=== PATIENT | female | born 1960 | race Caucasian/White ===

== ENCOUNTER 2017-03-12 05:57 | Emergency (ER) | payer OTHER ==
[~2017-03-12] VITALS: Ht 157.5 cm; Wt 78.9 kg
[~2017-03-12 05:57] MED LIST: AMO500 PO; CIPR-173; CIPR500T4 PO; DIPH25CA6 PO; HYDR-13; IBUP-1542 PO; LEVO50TA74 PO; MECL-77 PO; METR500T14; OMEP20CA9 PO; POLY10DR19 BOTH EYES; PRED20TA PO; SYNTHROID; TRAM50TA2 PO; synthroid
[2017-03-12 06:40] VITALS: Ht 157.5 cm; Wt 78.9 kg
--- NOTE | 2017-03-12 07:07 | ERD ---
ER Documentation Chief Complaint Date/Time DATE: 03/12/17 TIME: 07:04 Chief Complaint back pain after bending HPI This is a 57-year-old female who presents to the emergency room for evaluation of lower back pain. 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 She states that when she picks something up and started been back up she felt pain in her lower back. She states it is worse with standing straight, denies any radiation and denies any trauma to the area. The patient is also denying any fevers, urinary frequency, abdominal pain or urinary incontinence. ROS All systems reviewed and are negative except as per history of present illness. Medications Home Meds Active Scripts Polymyxin B Sulfate-TMP* (Polymyxin B-TMP Eye Drops*) 10 Ml Drops, 1 DROP BOTH EYES QID for 7 Days, EA Prov:SERGIO SELF MD 05/04/16 Amoxicillin* (Amoxicillin*) 500 Mg Cap, 500 MG PO TID for 10 Days, CAP Prov:SERGIO SELF MD 05/04/16 Ibuprofen* (Motrin*) 600 Mg Tab, 600 MG PO Q6, #15 TAB Prov:SERGIO SELF MD 05/04/16 Diphenhydramine Hcl* (Diphenhydramine Hcl*) 25 Mg Capsule, 25 MG PO Q6 Y for ITCHING, #14 CAP Prov:VINICIO IRIZARRY 02/26/16 Prednisone* (Prednisone*) 20 Mg Tab, 60 MG PO DAILY for 5 Days, TAB Prov:VINICIO IRIZARRY 02/26/16 Reported Medications Levothyroxine Sodium* (Levothyroxine Sodium*) 50 Mcg Tablet, 50 MCG PO AC BREAKFAST, TAB 04/08/15 Meclizine Hcl* (Meclizine Hcl*) 25 Mg Tablet, 25 MG PO TID Y for NAUSEA, TAB 04/06/15 Levothyroxine Sodium* (Levothyroxine Sodium*) 50 Mcg Tablet, 50 MCG PO DAILY, TAB 11/02/14 Allergies Allergies: Coded Allergies: No Known Drug Allergy (Verified Allergy, Mild, 03/18/15) PMhx/Soc History of Surgery: Yes (BHAKTI ALEXIS 2006 ABDOMINAL SX,BREAST IMPLANT 8 YEARS AGO,CHOLECYSTECTOMY) Anesthesia Reaction: No Hx Neurological Disorder: No Hx Respiratory Disorders: No Hx Cardiac Disorders: No Hx Psychiatric Problems: No Hx Miscellaneous Medical Probl: Yes Hx Alcohol Use: No Hx Substance Use: No Hx Tobacco Use: No Physical Exam Vitals Vital Signs Date Time Temp Pulse Resp B/P Pulse Ox O2 Delivery O2 Flow Rate FiO2 03/12/17 06:40 97.8 84 18 114/67 99 Physical Exam INITIAL VITAL SIGNS: Reviewed by me GENERAL: The patient is well developed and appropriate for usual state of health in no apparent distress HEENT: Pupils equal, round, and reactive to light. EOMI. There is no scleral icterus. NECK: C-spine is soft and supple, there is no meningismus. There is no cervical lymphadenopathy. LUNGS: Clear to auscultation bilaterally. There are no rales, wheezes or rhonchi. HEART: Regular rate and rhythm, no murmurs, clicks, rubs or gallops. ABDOMEN: Soft, non-tender, non-distended. There are bowel sounds in all four quadrants. No rebound or guarding. EXTREMITIES: There is no peripheral cyanosis or edema. No focal swelling or erythema. NEUROLOGICAL: The patient moves all four extremities with 5/5 strength. Cranial nerves II - XII are intact. Normal gait. Alert and oriented SKIN: There is no apparent rash or petechiae. Musculoskeletal: Limitation in range of motion of extension in the lumbar spine secondary to pain HEME/LYMPHATIC: There is no evidence of excessive bruising or lymphedema. PSYCHIATRIC: The patient does not appear anxious or depressed. Procedures/MDM This 57-year-old female presents to the emergency room for evaluation of nontraumatic lower back pain. The patient did have lower back pain after trying to pick something up. This patient has limitation secondary to pain with extension of her back and given her mechanism the patient is likely suffering from acute lumbar strain. The patient was given Motrin value in the emergency room and will be discharged home with a prescription for Motrin, and Valium. She was advised not to drink any alcohol value and advised him to the operating heavy machinery and including a motor vehicle. She states that she is going to go home and rest for the next couple of days. She is here with her daughter who takes care of her and her daughter feels comfortable taking the patient home at this time. I advised him to follow-up with her primary care physician in the next week for reevaluation and they verbalized understanding. Patient presents today with atraumatic back pain. Although infection, malignancy, GI, , and vascular causes have been considered in this patient, the patient's clinical presentation is most consistent with a musculoskeletal cause. There is neither evidence of any acute neurologic damage, nor of loss of function and thus, advanced imaging studies have been deferred. Patient will be treated conservatively with appropriate pain control precautionary discharge instructions provided. Departure Diagnosis: Primary Impression: Lumbar spine strain Additional Impression: Back pain Condition: Stable JOSE REYES DO Mar 12, 2017 07:07
[2017-03-12] MEDS ORDERED: DIAZ-90 PO (07:08)
[2017-03-12] MEDS ORDERED: IBUP800T25 PO (07:08)
[2017-03-12] MEDS ORDERED: DIAZEPAM 5 MG TAB PO ONE (07:30)
[2017-03-12] MEDS ORDERED: IBUPROFEN 800 MG TAB PO ONE (07:30)
== END 2017-03-12 07:45 | disposition home or self-care (01) ==
LOC: FTE 05:57
DX: S39.012A Strain of muscle, fascia and tendon of lower back, initial encounter (principal); X50.9XXA Other and unspecified overexertion or strenuous movements or postures, initial encounter; Y92.9 Unspecified place or not applicable
CPT/HCPCS: Z7502; Z7610; 99283

== ENCOUNTER 2017-09-20 02:51 | Inpatient (IN) | END 2017-09-23 13:21 | disposition home or self-care (01) | DRG 390 ==

== ENCOUNTER 2018-01-05 17:50 | Emergency (ER) | END 2018-01-05 19:00 | disposition home or self-care (01) ==

== ENCOUNTER 2018-09-20 18:13 | Inpatient (IN) | payer OTHER ==
[~2018-09-20] VITALS: Ht 160 cm; Wt 70.5 kg
[~2018-09-20 18:13] MED LIST changes: -AMO500 PO; +AMOX500C2 PO; +BACL10TA PO; -CIPR-173; -CIPR500T4 PO; -DIPH25CA6 PO; +FLUT9.9S NASAL; -HYDR-13; +LEVO50TA7 PO; -LEVO50TA74 PO; -MECL-77 PO; -METR500T14; +NAPR-985 PO; -OMEP20CA9 PO; -POLY10DR19 BOTH EYES; -PRED20TA PO; -SYNTHROID; -TRAM50TA2 PO; -synthroid
[2018-09-20] MEDS ORDERED: morphine 4 MG/ML VIAL IV STA (20:23)
[2018-09-20] MEDS ORDERED: ONDANSETRON 4 MG INJ IV STA (20:23)
[2018-09-20] MEDS ORDERED: ACETAMINOPHEN 325 MG TAB PO PRN (22:00)
[2018-09-20] MEDS ORDERED: CEFTRIAXONE 1 GM/50 ML (PMX) 50 ML IVPB ONE (22:00)
[2018-09-20] MEDS ORDERED: ONDANSETRON 4 MG INJ IV PRN (22:00)
--- NOTE | 2018-09-20 22:02 | ERD ---
ER Documentation Chief Complaint Chief Complaint Pt reports AP, hx SBO and pt reports it feels the same HPI This is a 58-year-old female with a past medical history of small bowel obstruction status post resection who is presenting with symptoms similar to her previous small bowel obstruction. The patient reports issues with partial small bowel obstructions and recurrent small bowel obstructions since her surgery. She was last admitted to the hospital last year for similar symptoms. The patient reports general moderate aching cramping abdominal pain. She has had nausea with multiple episodes of nonbilious nonbloody vomiting. Her last bowel movement was yesterday, and she reports that it was hard. She does endorse cons tipation. The patient does not endorse dysuria, but she has had urinary frequency. The patient denies feeling sick recently. The patient denies fever or chills. The patient has had no headache or vision changes. The patient does not endorse neck or back pain. The patient denies lightheadedness or dizziness. The patient has had no chest pain or trouble breathing. The patient has had no focal deficits. The patient has had no weakness or numbness or tingling to the face or extremities. ROS All systems reviewed and are negative except as per history of present illness. Medications Home Meds Active Scripts Ibuprofen* (Motrin*) 600 Mg Tab, 600 MG PO Q6, #30 TAB Prov:CHARO BENEDICT PA-C 01/05/18 Fluticasone Propionate (Flonase Allergy Relief) 9.9 Ml [place].susp, 1 SPRAY NASAL BID, #1 BOTTLE TO EACH NOSTRIL Prov:CHARO BENEDICT PA-C 01/05/18 Amoxicillin* (Amoxicillin*) 500 Mg Cap, 500 MG PO TID for 10 Days, CAP Prov:CHARO BENEDICT PA-C 01/05/18 Naproxen* (Naprosyn*) 500 Mg Tablet, 500 MG PO BID PRN for PAIN AND/OR INFLAMMATION, #30 TAB Prov:JENNIE MYRICK PA-C 12/03/17 Baclofen* (Baclofen*) 10 Mg Tablet, 10 MG PO TID, #20 TAB Prov:JENNIE MYRICK PA-C 12/03/17 Reported Medications Levothyroxine Sodium* (Levothyroxine Sodium*) 50 Mcg Tablet, 50 MCG PO AC BREAKFAST, TAB 04/08/15 Allergies Allergies: Coded Allergies: No Known Drug Allergy (Verified Allergy, Mild, 03/18/15) PMhx/Soc History of Surgery: Yes (Errol prince, 2011. breast implants 2016, cholycystectomy 1995, ovary removed, bowel resection) Anesthesia Reaction: No Hx Neurological Disorder: No Hx Respiratory Disorders: No Hx Cardiac Disorders: No Hx Psychiatric Problems: No Hx Miscellaneous Medical Probl: Yes (Recurrent small bowel obstruction) Hx Alcohol Use: No Hx Substance Use: No Hx Tobacco Use: No Smoking Status: Never smoker FmHx Family History: No diabetes Physical Exam Vitals Vital Signs Date Temp Pulse Resp B/P (MAP) Pulse Ox O2 O2 Flow FiO2 Time Delivery Rate 09/20/18 97.8 76 16 146/66 99 18:25 (92) Physical Exam Const: No apparent distress, well-developed, well-nourished Head: Normocephalic, Atraumatic Eyes: Normal Conjunctiva. Extraocular movements intact. Pupils equal, round and reactive to light ENT: Normal External Ears, Nose and Mouth. Neck: Full range of motion. No meningismus. Resp: Clear to auscultation bilaterally, No wheezes, rales or rhonchi Cardio: Regular rate and rhythm. No murmurs, rubs or gallops Abd: Soft, non distended. General abdominal discomfort with only suprapubic tenderness. Normal bowel sounds Skin: No petechiae or rashes Back: No midline tenderness. No CVA tenderness Ext: No cyanosis, or edema Neur: Awake and alert, oriented 4. Cranial nerves intact. No facial droop. Normal strength, sensation and coordination. Psych: Normal Mood and Affect Result Diagram: 09/20/18201709/20/18 2018 Results 24 hrs Laboratory Tests Test 09/20/18 20:18 09/20/18 20:20 White Blood Count 8.5 10^3/ul Red Blood Count 4.66 10^6/ul Hemoglobin 14.4 g/dl Hematocrit 42.3 % Mean Corpuscular Volume 90.8 fl Mean Corpuscular Hemoglobin 30.9 pg Mean Corpuscular Hemoglobin Concent 34.0 g/dl Red Cell Distribution Width 12.3 % Platelet Count 340 10^3/UL Mean Platelet Volume 10.2 fl Immature Granulocytes % 0.400 % Neutrophils % 73.9 % Lymphocytes % 17.2 % Monocytes % 6.0 % Eosinophils % 1.4 % Basophils % 1.1 % Nucleated Red Blood Cells % 0.0 /100WBC Immature Granulocytes # 0.030 10^3/ul Neutrophils # 6.3 10^3/ul Lymphocytes # 1.5 10^3/ul Monocytes # 0.5 10^3/ul Eosinophils # 0.1 10^3/ul Basophils # 0.1 10^3/ul Nucleated Red Blood Cells # 0.0 10^3/ul Sodium Level 143 mmol/L Potassium Level 3.8 mmol/L Chloride Level 103 mmol/L Carbon Dioxide Level 31 mmol/L Anion Gap 9 Blood Urea Nitrogen 11 mg/dl Creatinine 0.60 mg/dl Est Glomerular Filtrat Rate mL/min > 60 mL/min Glucose Level 144 mg/dl Calcium Level 9.8 mg/dl Total Bilirubin 0.3 mg/dl Direct Bilirubin 0.00 mg/dl Indirect Bilirubin 0.3 mg/dl Aspartate Amino Transf (AST/SGOT) 31 IU/L Alanine Aminotransferase (ALT/SGPT) 17 IU/L Alkaline Phosphatase 93 IU/L Total Protein 8.4 g/dl Albumin 4.7 g/dl Globulin 3.70 g/dl Albumin/Globulin Ratio 1.27 Lipase 82 U/L Urine Color YELLOW Urine Clarity CLOUDY Urine pH 9.0 Urine Specific [place] 1.020 Urine Ketones NEGATIVE mg/dL Urine Nitrite NEGATIVE mg/dL Urine Bilirubin NEGATIVE mg/dL Urine Urobilinogen NEGATIVE mg/dL Urine Leukocyte Esterase TRACE Wanda/ul Urine Microscopic RBC 3 /HPF Urine Microscopic WBC 12 /HPF Urine Squamous Epithelial Cells FEW /HPF Urine Amorphous Crystals FEW /HPF Urine Bacteria FEW /HPF Urine Mucus FEW /HPF Urine Hemoglobin NEGATIVE mg/dL Urine Glucose NEGATIVE mg/dL Urine Total Protein 1+ mg/dl Current Medications Medications Dose Sig/Norma Start Time Status Last (Trade) Ordered Route PRN Stop Time Admin Dose Reason Admin Morphine 4 mg ONCE STAT 09/20/18 DC 09/20/18 Sulfate IV 20:23 09/20/18 20:39 (morphine) 20:24 Ondansetron 4 mg ONCE STAT 09/20/18 DC 09/20/18 HCl (Zofran IV 20:23 09/20/18 20:39 Inj) 20:24 Procedures/MDM MDM The patient's presentation warrants further investigation. Previous medical records, if available, were reviewed. LABS The patient's laboratory testing was obtained and reviewed. No emergent treatment was required unless described below. CBC: No E/o of systemic infection or severe anemia or thrombocytopenia Chemistry: No E/o severe acidosis or alkalosis or renal failure or liver disease or diabetic ketoacidosis Lipase: No E/o pancreatitis Urine: E/o acute infection or hematuria IMAGING Imaging and Radiology interpretation reviewed. CT Abd/Pelvis FINDINGS: The lung bases are clear of any infiltrate or nodule. No effusion is seen. Patient is status post augmentation mammoplasty. The liver is of normal size, contour and attenuation with no mass or ductal dilatation. Gallbladder has been removed. No splenic, adrenal or pancreatic abnormalities present. Kidneys are of normal size and contour. No hydronephrosis, calculus or solid masses se en. 1 cm cortical cyst is seen on the lateral mid pole of the right kidney. Ureters are of normal course and caliber with no stone. No bladder mass or stone is present. Uterus appears normal. No adnexal mass is present. There is no aneurysm. No adenopathy is present. No bowel mass. There is been resection of the small bowel in the left jerry pelvis. Noted is a moderate length segment of severely distended small bowel. The transition appears to be immediately distal to the anastomosis. There is fecalized bowel proximal to the transition.. The appendix is normal. There is diverticulosis. No phlegmon, ascites or pneumoperitoneum is visualized. The osseous structures are intact. IMPRESSION: Status post small bowel resection with distended bowel proximal to the anastomosis with decompressed bowel distal. Rule out partial small bowel obstruction. Question anastomotic stricture. No mass visualized. No evidence of urolithiasis, obstructive uropathy, diverticulitis or appendicitis. Daria cystectomy. Small right renal cyst. Augmentation mammoplasty.. Electronically viewed and signed by .Bennie Garcia MD, on 09/20/2018 20:48 TREATMENT/DISPOSITION The patient presents with symptoms consistent with a partial small bowel obstruction, as is evidenced on the CT scan. An NG tube will be placed and the patient will be made n.p.o. There is also evidence of urinary tract infection, which will be treated. The patient does not have any evidence of peritonitis. The patient does not have clinical symptoms concerning for mesenteric ischemia or ischemic colitis. The patient does not have right upper quadrant tenderness, and I have low suspicion for gallstones, cholecystitis or biliary colic. The patient does not have any epigastric pain. I have low suspicion for gastritis, PUD or GERD. The patient does not have left upper quadrant tenderness. I have low suspicion for pancr eatitis. The patient does not have any right lower quadrant tenderness, or periumbilical tenderness. I have low suspicion for appendicitis. The patient does not have any left lower quadrant tenderness, and I have low suspicion for diverticulosis or diverticulitis. The patient does not have any flank tenderness. The patient does not have gross hematuria. I have decreased suspicion for nephrolithiasis or renal colic. The patient does not have any palpable pulsatile mass or severe abdominal pain radiating to the back. I have low suspicion for aortic aneurysm, dissection or rupture. At this time, I feel that the patient requires admission for further evaluation and management. The patient will be admitted to panel in accordance with the patient's insurance. The patient was accepted by Dr. Mcfarlane at 9:42 PM on September 20, 2018. The on-call general surgeon, Dr. Avilez, was consulted on the case. He will evaluate the patient in the hospital. Disclaimer: Inadvertent spelling and grammatical errors are likely due to EHR/dictation software use and do not reflect on the overall quality of patient care. Note that the electronic time recorded on this note does not necessarily reflect the actual time of the patient encounter. Departure Diagnosis: Primary Impression: Small bowel obstruction Additional Impressions: UTI (urinary tract infection) Urinary tract infection type: acute cystitis Hematuria presence: with hematuria Qualified Codes: N30.01 - Acute cystitis with hematuria Abdominal pain Abdominal location: generalized Qualified Codes: R10.84 - Generalized abdominal pain Nausea & vomiting Vomiting type: unspecified Vomiting Intractability: non-intractable Qualified Codes: R11.2 - Nausea with vomiting, unspecified Condition: Serious ADAM BARNES MD Sep 20, 2018 22:02
[2018-09-20 23:00] VITALS: BP 140/71; PULSE 74; RESP 18; Ht 160 cm; Wt 70.5 kg
--- NOTE | 2018-09-20 23:52 | HP ---
Date/Time of Note Date/Time of Note DATE: 09/20/18 TIME: 23:52 Assessment/Plan VTE Prophylaxis Pharmacological prophylaxis: heparin Assessment/Plan Assessment/Plan 58-year-old female with multiple abdominal surgeries and recurrent SBO. Abdominal pain with a CT findings of partial SBO 1. Partial SBO Keep n.p.o. with IV fluid NGT to low intermittent suction Pain and antiemetics Awaiting surgical eval 2. UTI -IV antibiotic -follow-up urine culture results Result Diagram: 09/20/18201709/20/182017 Results 24hrs Laboratory Tests Test 09/20/18 20:18 09/20/18 20:20 White Blood Count 8.5 Red Blood Count 4.66 Hemoglobin 14.4 Hematocrit 42.3 Mean Corpuscular Volume 90.8 Mean Corpuscular Hemoglobin 30.9 Mean Corpuscular Hemoglobin Concent 34.0 Red Cell Distribution Width 12.3 Platelet Count 340 Mean Platelet Volume 10.2 Immature Granulocytes % 0.400 Neutrophils % 73.9 Lymphocytes % 17.2 Monocytes % 6.0 Eosinophils % 1.4 Basophils % 1.1 Nucleated Red Blood Cells % 0.0 Immature Granulocytes # 0.030 Neutrophils # 6.3 Lymphocytes # 1.5 Monocytes # 0.5 Eosinophils # 0.1 Basophils # 0.1 Nucleated Red Blood Cells # 0.0 Sodium Level 143 Potassium Level 3.8 Chloride Level 103 Carbon Dioxide Level 31 Anion Gap 9 Blood Urea Nitrogen 11 Creatinine 0.60 Est Glomerular Filtrat Rate mL/min > 60 Glucose Level 144 Calcium Level 9.8 Total Bilirubin 0.3 Direct Bilirubin 0.00 Indirect Bilirubin 0.3 Aspartate Amino Transf (AST/SGOT) 31 Alanine Aminotransferase (ALT/SGPT) 17 Alkaline Phosphatase 93 Total Protein 8.4 H Albumin 4.7 Globulin 3.70 H Albumin/Globulin Ratio 1.27 Lipase 82 Urine Color YELLOW Urine Clarity CLOUDY A Urine pH 9.0 Urine Specific [place] 1.020 Urine Ketones NEGATIVE Urine Nitrite NEGATIVE Urine Bilirubin NEGATIVE Urine Urobilinogen NEGATIVE Urine Leukocyte Esterase TRACE A Urine Microscopic RBC 3 Urine Microscopic WBC 12 H Urine Squamous Epithelial Cells FEW Urine Amorphous Crystals FEW A Urine Bacteria FEW A Urine Mucus FEW A Urine Hemoglobin NEGATIVE Urine Glucose NEGATIVE Urine Total Protein 1+ H HPI/ROS Admit Date/Time Admit Date/Time Sep 20, 2018 at 21:47 Hx of Present Illness This is a 58-year-old female with a history of multiple abdominal surgeries including cholecystectomy, laparoscopic surgery for bowel obstruction 8 years ago, tummy tuck surgery, recurrent SBO. Patient presents the ER complaining of abdominal pain/distention, nausea/vomiting. CT with the findings of partial SBO. PMH/Family/Social Past Medical History Medications Current Medications Ondansetron HCl (Zofran Inj) 4 mg BRIDGE ORDER PRN IV NAUSEA/VOMITING; Start 09/20/18 at 22:00; Stop 09/21/18 at 21:59 Acetaminophen (Tylenol Tab) 650 mg ER BRIDGE PRN PO .MILD PAIN 1-3 OR TEMP; Start 09/20/18 at 22:00; Stop 09/21/18 at 21:59 Coded Allergies: No Known Drug Allergy (Verified Allergy, Mild, 03/18/15) Past Surgical History Past Surgical Hx: other Family History Significant Family History: no pertinent family hx Social History Smoking Status: Never smoker Exam/Review of Systems Vital Signs Vitals Vital Signs Date Temp Pulse Resp B/P (MAP) Pulse Ox O2 O2 Flow FiO2 Time Delivery Rate 09/20/18 98.3 74 18 140/71 100 Room Air 23:00 (94) Exam Exam Past Medical History: see hpi Past Surgical History Past Surgical Hx: other (see hpi) Family History Significant Family History: no pertinent family hx Social History Alcohol Use: other Smoking Status: Unknown if ever smoked Drug Use: other Medications Exam Eyes: PERRL ENMT: mucosa pink and moist Respiratory: normal air movement Cardiovascular: nl pulses Gastrointestinal: soft Extremities: normal pulses CHARO PICKENS MD Sep 20, 2018 23:52
[2018-09-21] MEDS ORDERED: ALBUTEROL/IPRATROPIUM (NEB) 3 ML AMP HHN PRN
[2018-09-21] MEDS ORDERED: NACL 0.9% 3 ML SYG IV SCH
[2018-09-21] MEDS ORDERED: ONDANSETRON 4 MG INJ IV PRN
[2018-09-21] MEDS: DEXTROSE 5%-0.45% NACL 1,000 ML IV SCH ×3 (00:14→19:52)
[2018-09-21] MEDS: morphine 2 MG INJ IV PRN ×2 (00:27→07:28)
[2018-09-21 02:05] VITALS: BP 138/70; RESP 20
[2018-09-21 07:59] VITALS: BP 136/63; PULSE 66; RESP 18
[2018-09-21] MEDS: FLUTICASONE 0.05% 16 GM NAS SPRAY NASAL SCH ×2 (08:57→21:43)
[2018-09-21] MEDS: CEFTRIAXONE 1 GM/50 ML (PMX) 50 ML IVPB SCH (08:58)
--- NOTE | 2018-09-21 10:21 | CONS ---
Assessment/Plan Assessment/Plan Assessment/Plan (Daily) CT findings suggesting small bowel obstruction Plan: Continue NG decompression. A small bowel follow-through has been ordered. Further recommendations will be forthcoming and based on the patient's further workup and clinical course. Consultation Date/Type/Reason Admit Date/Time Sep 20, 2018 at 21:47 Date of Consultation: Sep 21, 2018 Type of Consult General surgery Reason for Consultation Small bowel obstruction Date/Time of Note DATE: 09/21/18 TIME: 10:17 Hx of Present Illness The patient is a 58-year-old female whose history dates back to 12 years ago when she had a small bowel resection. It is unclear why she had a small bowel obstruction. Since that time she has had several readmissions and hospitalizations for small bowel obstruction, most recently 1 year ago. In the emergency room yesterday she was evaluated with CT scan which again showed small bowel obstruction. Her last bowel movement was yesterday. She feels symptomatically improved. Constitutional: no complaints ENT: no complaints Respiratory: no complaints Cardiovascular: no complaints Gastrointestinal: pain, other (As in the HPI) Genitourinary: no complaints Musculoskeletal: no complaints Skin: no complaints Neurologic: no complaints Endocrine: no complaints Past Medical History Home Meds Active Scripts Ibuprofen* (Motrin*) 600 Mg Tab, 600 MG PO Q6, #30 TAB Prov:CHARO BENEDICT PA-C 01/05/18 Fluticasone Propionate (Flonase Allergy Relief) 9.9 Ml [place].susp, 1 SPRAY NASAL BID, #1 BOTTLE TO EACH NOSTRIL Prov:CHARO BENEDICT PA-C 01/05/18 Amoxicillin* (Amoxicillin*) 500 Mg Cap, 500 MG PO TID for 10 Days, CAP Prov:CHARO BENEDICT PA-C 01/05/18 Naproxen* (Naprosyn*) 500 Mg Tablet, 500 MG PO BID PRN for PAIN AND/OR INFLAMMATION, #30 TAB Prov:JENNIE MYRICK PA-C 12/03/17 Baclofen* (Baclofen*) 10 Mg Tablet, 10 MG PO TID, #20 TAB Prov:JENNIE MYRICK PA-C 12/03/17 Reported Medications Levothyroxine Sodium* (Levothyroxine Sodium*) 50 Mcg Tablet, 50 MCG PO AC BREAKFAST, TAB 04/08/15 Medications Current Medications Ondansetron HCl (Zofran Inj) 4 mg BRIDGE ORDER PRN IV NAUSEA/VOMITING; Start 09/20/18 at 22:00; Stop 09/21/18 at 21:59 Acetaminophen (Tylenol Tab) 650 mg ER BRIDGE PRN PO .MILD PAIN 1-3 OR TEMP; Start 09/20/18 at 22:00; Stop 09/21/18 at 21:59 Dextrose/Sodium Chloride 1,000 ml @ 100 mls/hr Q10H IV Last administered on 09/21/18at 00:14; Admin Dose 100 MLS/HR; Start 09/20/18 at 23:52 IV Flush (NS 3 ml) 3 ml PER PROTOCOL IV ; Start 09/21/18 at 00:00 Ondansetron HCl (Zofran Inj) 4 mg Q6H PRN IV NAUSEA/VOMITING Last administered on 09/21/18at 00:27; Admin Dose 4 MG; Start 09/21/18 at 00:00 Morphine Sulfate (morphine) 2 mg Q4H PRN IV .SEVERE PAIN 7-10 Last administered on 09/21/18at 07:28; Admin Dose 2 MG; Start 09/21/18 at 00:00 Albuterol/ Ipratropium (Duoneb) 3 ml Q2H RESP THERAPY PRN HHN SHORTNESS OF BREATH; Start 09/21/18 at 00:00 Fluticasone Propionate (Flonase 0.05% Nasal) 1 spray BID NASAL Last administered on 09/21/18at 08:57; Admin Dose 1 SPRAY; Start 09/21/18 at 09:00 Ceftriaxone Sodium 50 ml @ 100 mls/hr DAILY IVPB Last administered on 09/21/18at 08:58; Admin Dose 100 MLS/HR; Start 09/21/18 at 09:00 Allergies: Coded Allergies: No Known Drug Allergy (Verified Allergy, Mild, 03/18/15) Past Surgical History Past Surgical Hx: other Family History Significant Family History: no pertinent family hx Social History Smoking Status: Never smoker Exam/Review of Systems Exam Vitals Vital Signs Date Temp Pulse Resp B/P (MAP) Pulse Ox O2 O2 Flow FiO2 Time Delivery Rate 09/21/18 98.7 66 18 136/63 93 07:59 (87) 09/20/18 Room Air 23:00 Intake and Output 09/20/18 09/20/18 09/21/18 1515:00 23:00 07:00 OutputOutput Total 500 ml BalanceBalance -500 ml Constitutional: alert, oriented Psych: no complaints Head: normocephalic Eyes: nl conjunctiva ENMT: other (There is a nasogastric tube in place draining a moderate amount of enteric content) Neck: supple Respiratory: clear to auscultation Cardiovascular: regular rate and rhythm Gastrointestinal: soft, distended, surgical scars (Well-healed lower vertical midline scar without hernia) Musculoskeletal: nl extremities to inspection Extremities: normal pulses Neurological: SHOT FIREMAN II-XII intact Results Result Diagram: 09/21/18 0433 09/21/18 0433 Results 24hrs Laboratory Tests Test 09/20/18 20:18 09/20/18 20:20 09/21/18 04:33 White Blood Count 8.5 8.0 Red Blood Count 4.66 4.25 Hemoglobin 14.4 13.1 Hematocrit 42.3 39.1 Mean Corpuscular Volume 90.8 92.0 Mean Corpuscular Hemoglobin 30.9 30.8 Mean Corpuscular Hemoglobin Concent 34.0 33.5 Red Cell Distribution Width 12.3 12.6 Platelet Count 340 190 # Mean Platelet Volume 10.2 12.6 #H Immature Granulocytes % 0.400 0.400 Neutrophils % 73.9 73.7 Lymphocytes % 17.2 18.2 Monocytes % 6.0 6.8 Eosinophils % 1.4 0.4 Basophils % 1.1 0.5 Nucleated Red Blood Cells % 0.0 0.4 H Immature Granulocytes # 0.030 0.030 Neutrophils # 6.3 5.9 Lymphocytes # 1.5 1.5 Monocytes # 0.5 0.5 Eosinophils # 0.1 0.0 Basophils # 0.1 0.0 Nucleated Red Blood Cells # 0.0 0.0 Sodium Level 143 142 Potassium Level 3.8 4.1 Chloride Level 103 103 Carbon Dioxide Level 31 28 Anion Gap 9 11 Blood Urea Nitrogen 11 10 Creatinine 0.60 0.57 Est Glomerular Filtrat Rate mL/min > 60 > 60 Glucose Level 144 142 Calcium Level 9.8 9.1 Total Bilirubin 0.3 0.3 Direct Bilirubin 0.00 0.00 Indirect Bilirubin 0.3 0.3 Aspartate Amino Transf (AST/SGOT) 31 33 Alanine Aminotransferase (ALT/SGPT) 17 23 Alkaline Phosphatase 93 66 Total Protein 8.4 H 7.8 Albumin 4.7 4.2 Globulin 3.70 H 3.60 H Albumin/Globulin Ratio 1.27 1.16 Lipase 82 Urine Color YELLOW Urine Clarity CLOUDY A Urine pH 9.0 Urine Specific [place] 1.020 Urine Ketones NEGATIVE Urine Nitrite NEGATIVE Urine Bilirubin NEGATIVE Urine Urobilinogen NEGATIVE Urine Leukocyte Esterase TRACE A Urine Microscopic RBC 3 Urine Microscopic WBC 12 H Urine Squamous Epithelial Cells FEW Urine Amorphous Crystals FEW A Urine Bacteria FEW A Urine Mucus FEW A Urine Hemoglobin NEGATIVE Urine Glucose NEGATIVE Urine Total Protein 1+ H Segmented Neutrophils % (Manual) 62 Band Neutrophils % (Manual) 5 H Lymphocytes % (Manual) 24 Reactive Lymphocytes % (Manual) 4 H Monocytes % (Manual) 3 Basophils % (Manual) 2 Neutrophils # (Manual) 5.0 Band Neutrophils # 0.4 Lymphocytes (Manual) 1.9 Reactive Lymphocytes # 0.3 H Monocytes # (Manual) 0.2 L Basophils # (Manual) 0.1 H Platelet Estimate NORMAL Poikilocytosis 1+ Phosphorus Level 4.1 Magnesium Level 2.1 Free Thyroxine Index 2.68 Thyroxine (T4) 7.7 Triiodothyronine (T3) Uptake 34.8 Medications Medication Current Medications Ondansetron HCl (Zofran Inj) 4 mg BRIDGE ORDER PRN IV NAUSEA/VOMITING; Start 09/20/18 at 22:00; Stop 09/21/18 at 21:59 Acetaminophen (Tylenol Tab) 650 mg ER BRIDGE PRN PO .MILD PAIN 1-3 OR TEMP; Start 09/20/18 at 22:00; Stop 09/21/18 at 21:59 Dextrose/Sodium Chloride 1,000 ml @ 100 mls/hr Q10H IV Last administered on 09/21/18at 00:14; Admin Dose 100 MLS/HR; Start 09/20/18 at 23:52 IV Flush (NS 3 ml) 3 ml PER PROTOCOL IV ; Start 09/21/18 at 00:00 Ondansetron HCl (Zofran Inj) 4 mg Q6H PRN IV NAUSEA/VOMITING Last administered on 09/21/18at 00:27; Admin Dose 4 MG; Start 09/21/18 at 00:00 Morphine Sulfate (morphine) 2 mg Q4H PRN IV .SEVERE PAIN 7-10 Last administered on 09/21/18at 07:28; Admin Dose 2 MG; Start 09/21/18 at 00:00 Albuterol/ Ipratropium (Duoneb) 3 ml Q2H RESP THERAPY PRN HHN SHORTNESS OF BREATH; Start 09/21/18 at 00:00 Fluticasone Propionate (Flonase 0.05% Nasal) 1 spray BID NASAL Last admini stered on 09/21/18at 08:57; Admin Dose 1 SPRAY; Start 09/21/18 at 09:00 Ceftriaxone Sodium 50 ml @ 100 mls/hr DAILY IVPB Last administered on 09/21/18at 08:58; Admin Dose 100 MLS/HR; Start 09/21/18 at 09:00 ANDRÉS AL MD Sep 21, 2018 10:21
[2018-09-21] MEDS ORDERED: DIATR MEGLU/DIATRIZOATE SODIUM 120 ML BTL ONE (11:57)
--- NOTE | 2018-09-21 12:48 | PN ---
Date/Time of Note Date/Time of Note DATE: 09/21/18 TIME: 12:46 Assessment/Plan VTE Prophylaxis Risk score (from Ns)>0 risk: 2 SCD applied (from Ns): Yes SCD contraindicated: low risk/ambulating Pharmacological prophylaxis: LMWH Lines/Catheters IV Catheter Type (from [facility]): Peripheral IV Assessment/Plan Hospital Course Hospitalist coverage Assessment and plan 1. Recurrent bowel obstruction likely small bowel, stable continue n.p.o./NG care/IV fluids. Small bowel series pending 2. Likely adhesions. Recommend outpatient GI referral for colonoscopy 3. Anemia 4. Dehydration recommend increasing fluid intake on discharge Subjective: Feels better no fever dyspnea chest pain positive flatus Objective: Vital signs stable Physical exam No pallor icterus adenopathy Regular no murmur gallop Clear Bowel sounds diminished mild tender diffuse non-distended no RR G No edema Result Diagram: 09/21/183 09/21/183 Results 24hrs Laboratory Tests Test 09/20/18 20:18 09/20/18 20:20 09/21/18 04:33 White Blood Count 8.5 8.0 Red Blood Count 4.66 4.25 Hemoglobin 14.4 13.1 Hematocrit 42.3 39.1 Mean Corpuscular Volume 90.8 92.0 Mean Corpuscular Hemoglobin 30.9 30.8 Mean Corpuscular Hemoglobin Concent 34.0 33.5 Red Cell Distribution Width 12.3 12.6 Platelet Count 340 190 # Mean Platelet Volume 10.2 12.6 #H Immature Granulocytes % 0.400 0.400 Neutrophils % 73.9 73.7 Lymphocytes % 17.2 18.2 Monocytes % 6.0 6.8 Eosinophils % 1.4 0.4 Basophils % 1.1 0.5 Nucleated Red Blood Cells % 0.0 0.4 H Immature Granulocytes # 0.030 0.030 Neutrophils # 6.3 5.9 Lymphocytes # 1.5 1.5 Monocytes # 0.5 0.5 Eosinophils # 0.1 0.0 Basophils # 0.1 0.0 Nucleated Red Blood Cells # 0.0 0.0 Sodium Level 143 142 Potassium Level 3.8 4.1 Chloride Level 103 103 Carbon Dioxide Level 31 28 Anion Gap 9 11 Blood Urea Nitrogen 11 10 Creatinine 0.60 0.57 Est Glomerular Filtrat Rate mL/min > 60 > 60 Glucose Level 144 142 Calcium Level 9.8 9.1 Total Bilirubin 0.3 0.3 Direct Bilirubin 0.00 0.00 Indirect Bilirubin 0.3 0.3 Aspartate Amino Transf (AST/SGOT) 31 33 Alanine Aminotransferase (ALT/SGPT) 17 23 Alkaline Phosphatase 93 66 Total Protein 8.4 H 7.8 Albumin 4.7 4.2 Globulin 3.70 H 3.60 H Albumin/Globulin Ratio 1.27 1.16 Lipase 82 Urine Color YELLOW Urine Clarity CLOUDY A Urine pH 9.0 Urine Specific [place] 1.020 Urine Ketones NEGATIVE Urine Nitrite NEGATIVE Urine Bilirubin NEGATIVE Urine Urobilinogen NEGATIVE Urine Leukocyte Esterase TRACE A Urine Microscopic RBC 3 Urine Microscopic WBC 12 H Urine Squamous Epithelial Cells FEW Urine Amorphous Crystals FEW A Urine Bacteria FEW A Urine Mucus FEW A Urine Hemoglobin NEGATIVE Urine Glucose NEGATIVE Urine Total Protein 1+ H Segmented Neutrophils % (Manual) 62 Band Neutrophils % (Manual) 5 H Lymphocytes % (Manual) 24 Reactive Lymphocytes % (Manual) 4 H Monocytes % (Manual) 3 Basophils % (Manual) 2 Neutrophils # (Manual) 5.0 Band Neutrophils # 0.4 Lymphocytes (Manual) 1.9 Reactive Lymphocytes # 0.3 H Monocytes # (Manual) 0.2 L Basophils # (Manual) 0.1 H Platelet Estimate NORMAL Poikilocytosis 1+ Phosphorus Level 4.1 Magnesium Level 2.1 Free Thyroxine Index 2.68 Thyroxine (T4) 7.7 Triiodothyronine (T3) Uptake 34.8 Exam/Review of Systems Exam Vitals Vital Signs Date Temp Pulse Resp B/P (MAP) Pulse Ox O2 O2 Flow FiO2 Time Delivery Rate 09/21/18 98.7 66 18 136/63 93 07:59 (87) 09/20/18 Room Air 23:00 Intake and Output 09/20/18 09/20/18 09/21/18 1515:00 23:00 07:00 OutputOutput Total 500 ml BalanceBalance -500 ml Results Results 24hrs Laboratory Tests Test 09/20/18 20:18 09/20/18 20:20 09/21/18 04:33 White Blood Count 8.5 8.0 Red Blood Count 4.66 4.25 Hemoglobin 14.4 13.1 Hematocrit 42.3 39.1 Mean Corpuscular Volume 90.8 92.0 Mean Corpuscular Hemoglobin 30.9 30.8 Mean Corpuscular Hemoglobin Concent 34.0 33.5 Red Cell Distribution Width 12.3 12.6 Platelet Count 340 190 # Mean Platelet Volume 10.2 12.6 #H Immature Granulocytes % 0.400 0.400 Neutrophils % 73.9 73.7 Lymphocytes % 17.2 18.2 Monocytes % 6.0 6.8 Eosinophils % 1.4 0.4 Basophils % 1.1 0.5 Nucleated Red Blood Cells % 0.0 0.4 H Immature Granulocytes # 0.030 0.030 Neutrophils # 6.3 5.9 Lymphocytes # 1.5 1.5 Monocytes # 0.5 0.5 Eosinophils # 0.1 0.0 Basophils # 0.1 0.0 Nucleated Red Blood Cells # 0.0 0.0 Sodium Level 143 142 Potassium Level 3.8 4.1 Chloride Level 103 103 Carbon Dioxide Level 31 28 Anion Gap 9 11 Blood Urea Nitrogen 11 10 Creatinine 0.60 0.57 Est Glomerular Filtrat Rate mL/min > 60 > 60 Glucose Level 144 142 Calcium Level 9.8 9.1 Total Bilirubin 0.3 0.3 Direct Bilirubin 0.00 0.00 Indirect Bilirubin 0.3 0.3 Aspartate Amino Transf (AST/SGOT) 31 33 Alanine Aminotransferase (ALT/SGPT) 17 23 Alkaline Phosphatase 93 66 Total Protein 8.4 H 7.8 Albumin 4.7 4.2 Globulin 3.70 H 3.60 H Albumin/Globulin Ratio 1.27 1.16 Lipase 82 Urine Color YELLOW Urine Clarity CLOUDY A Urine pH 9.0 Urine Specific [place] 1.020 Urine Ketones NEGATIVE Urine Nitrite NEGATIVE Urine Bilirubin NEGATIVE Urine Urobilinogen NEGATIVE Urine Leukocyte Esterase TRACE A Urine Microscopic RBC 3 Urine Microscopic WBC 12 H Urine Squamous Epithelial Cells FEW Urine Amorphous Crystals FEW A Urine Bacteria FEW A Urine Mucus FEW A Urine Hemoglobin NEGATIVE Urine Glucose NEGATIVE Urine Total Protein 1+ H Segmented Neutrophils % (Manual) 62 Band Neutrophils % (Manual) 5 H Lymphocytes % (Manual) 24 Reactive Lymphocytes % (Manual) 4 H Monocytes % (Manual) 3 Basophils % (Manual) 2 Neutrophils # (Manual) 5.0 Band Neutrophils # 0.4 Lymphocytes (Manual) 1.9 Reactive Lymphocytes # 0.3 H Monocytes # (Manual) 0.2 L Basophils # (Manual) 0.1 H Platelet Estimate NORMAL Poikilocytosis 1+ Phosphorus Level 4.1 Magnesium Level 2.1 Free Thyroxine Index 2.68 Thyroxine (T4) 7.7 Triiodothyronine (T3) Uptake 34.8 Medications Medication Current Medications Ondansetron HCl (Zofran Inj) 4 mg BRIDGE ORDER PRN IV NAUSEA/VOMITING; Start 09/20/18 at 22:00; Stop 09/21/18 at 21:59 Acetaminophen (Tylenol Tab) 650 mg ER BRIDGE PRN PO .MILD PAIN 1-3 OR TEMP; Sta rt 09/20/18 at 22:00; Stop 09/21/18 at 21:59 Dextrose/Sodium Chloride 1,000 ml @ 100 mls/hr Q10H IV Last administered on 09/21/18at 00:14; Admin Dose 100 MLS/HR; Start 09/20/18 at 23:52 IV Flush (NS 3 ml) 3 ml PER PROTOCOL IV ; Start 09/21/18 at 00:00 Ondansetron HCl (Zofran Inj) 4 mg Q6H PRN IV NAUSEA/VOMITING Last administered on 09/21/18at 00:27; Admin Dose 4 MG; Start 09/21/18 at 00:00 Morphine Sulfate (morphine) 2 mg Q4H PRN IV .SEVERE PAIN 7-10 Last administered on 09/21/18at 07:28; Admin Dose 2 MG; Start 09/21/18 at 00:00 Albuterol/ Ipratropium (Duoneb) 3 ml Q2H RESP THERAPY PRN HHN SHORTNESS OF BREATH; Start 09/21/18 at 00:00 Fluticasone Propionate (Flonase 0.05% Nasal) 1 spray BID NASAL Last administered on 09/21/18at 08:57; Admin Dose 1 SPRAY; Start 09/21/18 at 09:00 Ceftriaxone Sodium 50 ml @ 100 mls/hr DAILY IVPB Last administered on 09/21/18at 08:58; Admin Dose 100 MLS/HR; Start 09/21/18 at 09:00 ERNESTINE FLORES MD Sep 21, 2018 12:48
[2018-09-21] MEDS ORDERED: KETOROLAC 30 MG INJ IV PRN (13:00)
[2018-09-21 19:08] VITALS: BP 137/65; PULSE 77; RESP 16
[2018-09-21] MEDS: ENOXAPARIN 40 MG/0.4 ML SYG SC SCH (20:56)
[2018-09-22] MEDS: DEXTROSE 5%-0.45% NACL 1,000 ML IV SCH ×3 (00:55→21:29)
[2018-09-22 01:16] VITALS: BP 116/59; PULSE 78; RESP 16
[2018-09-22 07:10] VITALS: BP 125/59; PULSE 88; RESP 18
[2018-09-22] MEDS: CEFTRIAXONE 1 GM/50 ML (PMX) 50 ML IVPB SCH (09:15)
[2018-09-22] MEDS: FLUTICASONE 0.05% 16 GM NAS SPRAY NASAL SCH ×2 (09:15→21:18)
[2018-09-22] MEDS ORDERED: POTASSIUM CHLORIDE (SR) 20 MEQ TAB PO STA (09:18)
[2018-09-22] MEDS: ENOXAPARIN 40 MG/0.4 ML SYG SC SCH (09:20)
--- NOTE | 2018-09-22 09:22 | PN ---
Date/Time of Note Date/Time of Note DATE: 09/22/18 TIME: 09:20 Assessment/Plan VTE Prophylaxis Risk score (from Nsg)>0 risk: 2 SCD applied (from Nsg): Yes Pharmacological prophylaxis: LMWH Lines/Catheters IV Catheter Type (from Nrs): Peripheral IV Assessment/Plan Hospital Course SUBJECTIVE: Tolerating clear liquids. Denies any abdominal pain at this time. OBJECTIVE: Physical Exam General: Adequately build 58 year-old female lying in bed in no apparent distress. HEENT: Normocephalic, atraumatic. Eyes: Anicteric sclerae, conjunctivae clear. ENT: Nasal septum midline, oral mucosa moist. Neck supple, no JVD noticed. Respiratory: Bilaterally clear breath sounds. No use of accessory muscles of respiration. No adventitious breath sounds. Cardiovascular: S1, S2 heard. Regular rate and rhythm. Abdomen: Soft and nondistended. Surgical scars on the abdominal wall. Extremities: No cyanosis, no clubbing, no edema. Peripheral pulses palpable. Neurologic: Cranial nerves II through XII grossly intact. The patient is awake, alert, and oriented. Skin: Normal skin turgor. No skin rashes. Labs & Vitals per chart ASSESSMENT & PLAN 58-year-old female with past medical history of hypothyroidism and multiple abdominal surgeries with prior history of small bowel obstruction. The patient came to the emergency room with chief complaint of abdominal pain. CT scan of the abdomen and pelvis was showing distended bowel proximal to the anastomosis with decompressed bowel distal, rule out partial small bowel obstruction. Therefore, the patient was admitted to inpatient setting. 1. Abdominal pain with CT showing partial small bowel obstruction. -Status post NGT decompression -Being followed by general surgery. -Currently on clears. -Advance diet as tolerated. 2. Hypothyroidism. -Resume Synthroid. 3. Positive urinalysis. -On empiric antibiotics for any underlying urinary tract infection. -Pending urine cultures. 4. Fluids, electrolytes, and nutrition. -Continue IV fluids. -Clear liquids. -Advance diet as tolerated. 5. DVT prophylaxis. -Subcutaneous Lovenox. 6. Plan. -Advance diet as tolerated. -Follow surgical recommendations. The patient was seen in collaboration with Dr. He. Result Diagram: 09/22/18 0455 09/22/18 0455 Results 24hrs Laboratory Tests Test 09/22/18 04:52 09/22/18 04:55 Serum HCG, Qualitative NEGATIVE White Blood Count 8.7 Red Blood Count 4.26 Hemoglobin 12.9 Hematocrit 38.6 Mean Corpuscular Volume 90.6 Mean Corpuscular Hemoglobin 30.3 Mean Corpuscular Hemoglobin Concent 33.4 Red Cell Distribution Width 12.5 Platelet Count 298 # Mean Platelet Volume 10.5 H Immature Granulocytes % 0.200 Neutrophils % 63.9 Lymphocytes % 24.7 Monocytes % 8.3 Eosinophils % 2.0 Basophils % 0.9 Nucleated Red Blood Cells % 0.0 Immature Granulocytes # 0.020 Neutrophils # 5.5 Lymphocytes # 2.1 Monocytes # 0.7 Eosinophils # 0.2 Basophils # 0.1 Nucleated Red Blood Cells # 0.0 Prothrombin Time 13.0 Prothrombin Time Ratio 1.0 INR International Normalized Ratio 0.97 Activated Partial Thromboplast Time 32.1 Sodium Level 143 Potassium Level 3.3 L Chloride Level 107 Carbon Dioxide Level 29 Anion Gap 7 Blood Urea Nitrogen 8 Creatinine 0.53 Est Glomerular Filtrat Rate mL/min > 60 Glucose Level 116 Calcium Level 8.6 Phosphorus Level 3.6 Magnesium Level 2.0 Total Bilirubin 0.4 Direct Bilirubin 0.00 Indirect Bilirubin 0.4 Aspartate Amino Transf (AST/SGOT) 27 Alanine Aminotransferase (ALT/SGPT) 19 Alkaline Phosphatase 67 Lactate Dehydrogenase 400 Total Protein 6.5 # Albumin 3.5 Globulin 3.00 Albumin/Globulin Ratio 1.16 Lipase 94 Thyroid Stimulating Hormone (TSH) 1.020 Exam/Review of Systems Exam Vitals Vital Signs Date Temp Pulse Resp B/P (MAP) Pulse Ox O2 O2 Flow FiO2 Time Delivery Rate 09/22/18 98.0 88 18 125/59 91 Room Air 07:10 (81) Intake and Output 09/21/18 09/21/18 09/22/18 1515:00 23:00 07:00 IntakeIntake Total 1050 ml 400 ml 1100 ml OutputOutput Total 700 ml BalanceBalance 1050 ml -300 ml 1100 ml Results Results 24hrs Laboratory Tests Test 09/22/18 04:52 09/22/18 04:55 Serum HCG, Qualitative NEGATIVE White Blood Count 8.7 Red Blood Count 4.26 Hemoglobin 12.9 Hematocrit 38.6 Mean Corpuscular Volume 90.6 Mean Corpuscular Hemoglobin 30.3 Mean Corpuscular Hemoglobin Concent 33.4 Red Cell Distribution Width 12.5 Platelet Count 298 # Mean Platelet Volume 10.5 H Immature Granulocytes % 0.200 Neutrophils % 63.9 Lymphocytes % 24.7 Monocytes % 8.3 Eosinophils % 2.0 Basophils % 0.9 Nucleated Red Blood Cells % 0.0 Immature Granulocytes # 0.020 Neutrophils # 5.5 Lymphocytes # 2.1 Monocytes # 0.7 Eosinophils # 0.2 Basophils # 0.1 Nucleated Red Blood Cells # 0.0 Prothrombin Time 13.0 Prothrombin Time Ratio 1.0 INR International Normalized Ratio 0.97 Activated Partial Thromboplast Time 32.1 Sodium Level 143 Potassium Level 3.3 L Chloride Level 107 Carbon Dioxide Level 29 Anion Gap 7 Blood Urea Nitrogen 8 Creatinine 0.53 Est Glomerular Filtrat Rate mL/min > 60 Glucose Level 116 Calcium Level 8.6 Phosphorus Level 3.6 Magnesium Level 2.0 Total Bilirubin 0.4 Direct Bilirubin 0.00 Indirect Bilirubin 0.4 Aspartate Amino Transf (AST/SGOT) 27 Alanine Aminotransferase (ALT/SGPT) 19 Alkaline Phosphatase 67 Lactate Dehydrogenase 400 Total Protein 6.5 # Albumin 3.5 Globulin 3.00 Albumin/Globulin Ratio 1.16 Lipase 94 Thyroid Stimulating Hormone (TSH) 1.020 Medications Medication Current Medications Dextrose/Sodium Chloride 1,000 ml @ 100 mls/hr Q10H IV Last administered on 09/22/18at 00:55; Admin Dose 100 MLS/HR; Start 09/20/18 at 23:52 IV Flush (NS 3 ml) 3 ml PER PROTOCOL IV ; Start 09/21/18 at 00:00 Ondansetron HCl (Zofran Inj) 4 mg Q6H PRN IV NAUSEA/VOMITING Last administered on 09/21/18at 00:27; Admin Dose 4 MG; Start 09/21/18 at 00:00 Morphine Sulfate (morphine) 2 mg Q4H PRN IV .SEVERE PAIN 7-10 Last administered on 09/21/18at 07:28; Admin Dose 2 MG; Start 09/21/18 at 00:00 Albuterol/ Ipratropium (Duoneb) 3 ml Q2H RESP THERAPY PRN HHN SHORTNESS OF BREATH; Start 09/21/18 at 00:00 Fluticasone Propionate (Flonase 0.05% Nasal) 1 spray BID NASAL Last administered on 09/21/18at 21:43; Admin Dose 1 SPRAY; Start 09/21/18 at 09:00 Ceftriaxone Sodium 50 ml @ 100 mls/hr DAILY IVPB Last administered on 09/21/18at 08:58; Admin Dose 100 MLS/HR; Start 09/21/18 at 09:00 Ketorolac Tromethamine (Toradol) 30 mg Q6H PRN IV PAIN LEVEL 1-3; Start 09/21/18 at 13:00; Stop 09/24/18 at 12:59 Famotidine (Pepcid Iv) 20 mg DAILY IV ; Start 09/22/18 at 21:00 Enoxaparin Sodium (Lovenox) 40 mg DAILY SC Last administered on 09/21/18at 20:56; Admin Dose 40 MG; Start 09/21/18 at 21:00 CARRIE MURPHY NP Sep 22, 2018 09:22
--- NOTE | 2018-09-22 11:59 | QN ---
Documentation Comment Small bowel follow-through did not show obstruction Today's x-ray is normal Abdominal examination benign Started clear liquids ANDRÉS AL MD Sep 22, 2018 11:59
[2018-09-22 15:26] VITALS: BP 129/68; PULSE 70; RESP 18
[2018-09-22 19:10] VITALS: BP 106/75; PULSE 79; RESP 16
[2018-09-22] MEDS: FAMOTIDINE 20 MG INJ IV SCH (21:21)
[2018-09-23 01:08] VITALS: BP 108/67; PULSE 63; RESP 16
[2018-09-23] MEDS: DEXTROSE 5%-0.45% NACL 1,000 ML IV SCH (06:15)
[2018-09-23 07:12] VITALS: BP 140/70; PULSE 69; RESP 18
[2018-09-23] MEDS ORDERED: LEVOTHYROXINE 50 MCG TAB PO SCH (07:20)
[2018-09-23] MEDS: FAMOTIDINE 20 MG INJ IV SCH (08:01)
[2018-09-23] MEDS: FLUTICASONE 0.05% 16 GM NAS SPRAY NASAL SCH (08:01)
[2018-09-23] MEDS: CEFTRIAXONE 1 GM/50 ML (PMX) 50 ML IVPB SCH (08:01)
[2018-09-23] MEDS: ENOXAPARIN 40 MG/0.4 ML SYG SC SCH (08:07)
--- NOTE | 2018-09-23 09:18 | QN ---
Documentation Comment No abdominal pain Tolerating liquids nicely Abdominal examination is benign Has had several bowel movements Plan: No new surgical recommendations should be able to discharge home today. ANDRÉS AL MD Sep 23, 2018 09:18
--- NOTE | 2018-09-23 14:04 | PDOCDIS ---
Discharge Instructions CONDITION [id number] Patient Condition: [id number] Stable HOME CARE INSTRUCTIONS: [id number] Diet Instructions: [id number] Regular ACTIVITY: [id number] Activity Restrictions: [id number] No Restrictions [id number] Bathing Restrictions: [id number] Shower FOLLOW UP/APPOINTMENTS Follow-up Plan Barber Alex MD Specialty: Internal Medicine Office Address: [address] [place], [place] [id number] Office OTHER ORDERS: Other Orders: 1. Resume home medications 2. Take a regular diet as tolerated. 3. Follow-up with your primary care physician in 2 weeks. If you do not have a primary care physician, please call Dr. Barber Alex's office. 4. Resume activities as tolerated. 5. Please go to the nearest emergency room if you have significant abdominal pain, persistent nausea/vomiting, or any other unusual signs/symptoms. CARRIE MURPHY NP Sep 23, 2018 14:04
--- NOTE | 2018-09-23 14:08 | DS ---
Date/Time of Note Date/Time of Note DATE: 09/23/18 TIME: 14:06 Discharge Summary Admission/Discharge Info Admit Date/Time Sep 20, 2018 at 21:47 Discharge Date/Time Discharge Diagnosis 1. Ileus Vs SBO. 2. Hypothyroidism. Patient Condition: Stable Consults 1. Fransisco Avilez MD, General Surgery. Procedures CT Abdomen & Pelvis IMPRESSION: Status post small bowel resection with distended bowel proximal to the anastomosis with decompressed bowel distal. Rule out partial small bowel obstruction. Question anastomotic stricture. No mass visualized. No evidence of urolithiasis, obstructive uropathy, diverticulitis or appendicitis. Cholecystectomy. Small right renal cyst. Augmentation mammoplasty. Hx of Present Illness This is a 58-year-old female with past medical history of hypothyroidism and multiple abdominal surgeries with prior history of small bowel obstruction. The patient came to the emergency room with chief complaint of abdominal pain. CT scan of the abdomen and pelvis was showing distended bowel proximal to the anastomosis with decompressed bowel distal, rule out partial small bowel obstruction. Therefore, the patient was admitted to inpatient setting. Hospital Course General surgery consult was obtained. The patient was started on NGT decompression. The patient responded well to NGT decompression. The patient's NG tube was discontinued and the patient was started on a clear liquid diet once the patient had negative radiographic evidence of any obstruction. The patient's diet was advanced as tolerated to a regular consistency diet without any significant gastrointestinal symptoms. The patient was able to have bowel movements. Therefore, the patient will be discharged home. The patient has a prior history of multiple abdominal surgeries and prior history of small bowel obstruction. The patient's chronic problems include hypothyroidism. The patient was on Synthroid for the same. The patient had a positive urinalysis. Therefore, the patient was started on antimicrobials for any underlying urinary tract infection. However, for unclear reasons no urine cultures were sent on this patient. Nevertheless, the patient remained asymptomatic. Therefore, the patient's antimicrobials will be discontinued. The patient had a stable hospital course. The patient is stable to be discharged home. Discharge Instructions 1. Resume home medications 2. Take a regular diet as tolerated. 3. Follow-up with your primary care physician in 2 weeks. If you do not have a primary care physician, please call Dr. Barber Alex's office. 4. Resume activities as tolerated. 5. Please go to the nearest emergency room if you have significant abdominal pain, persistent nausea/vomiting, or any other unusual signs/symptoms. The patient verbalized understanding of her discharge instructions. At this time I like to thank Dr. Avilez for seeing the patient and providing clinical recommendations. The patient was seen in collaboration with Dr. He. Home Meds Active Scripts Fluticasone Propionate (Flonase Allergy Relief) 9.9 Ml [place].susp, 1 SPRAY NASAL BID, #1 BOTTLE TO EACH NOSTRIL Prov:CHARO BENEDICT PA-C 01/05/18 Reported Medications Levothyroxine Sodium* (Levothyroxine Sodium*) 50 Mcg Tablet, 50 MCG PO AC BREAKFAST, TAB 04/08/15 Discontinued Scripts Ibuprofen* (Motrin*) 600 Mg Tab, 600 MG PO Q6, #30 TAB Prov:CHARO BENEDICT PA-C 01/05/18 Amoxicillin* (Amoxicillin*) 500 Mg Cap, 500 MG PO TID for 10 Days, CAP Prov:CHARO BENEDICT PA-C 01/05/18 Naproxen* (Naprosyn*) 500 Mg Tablet, 500 MG PO BID PRN for PAIN AND/OR INFLAMMATION, #30 TAB Prov:JENNIE MYRICK PA-C 12/03/17 Baclofen* (Baclofen*) 10 Mg Tablet, 10 MG PO TID, #20 TAB Prov:JENNIE MYRICK PA-C 12/03/17 Follow-up Plan Barber Alex MD Specialty: Internal Medicine Office Address: [address] [place] [address] Office Primary Care Provider [facility] Time spent on discharge: > 30 minutes Pending Labs Laboratory Tests Test 09/23/18 04:32 White Blood Count 5.5 10^3/ul (4.8-10.8) Red Blood Count 3.92 10^6/ul (4.20-5.40) Hemoglobin 12.2 g/dl (12.0-16.0) Hematocrit 35.6 % (37.0-47.0) Mean Corpuscular Volume 90.8 fl (82.0-101.0) Mean Corpuscular Hemoglobin 31.1 pg (29.0-33.0) Mean Corpuscular Hemoglobin Concent 34.3 g/dl (32.0-37.0) Red Cell Distribution Width 12.3 % (11.5-14.5) Platelet Count 281 10^3/UL (140-415) Mean Platelet Volume 10.7 fl (7.4-10.4) Immature Granulocytes % 0.200 % (0.001-0.429) Neutrophils % 41.9 % (39.0-77.0) Lymphocytes % 39.1 % (15.0-51.0) Monocytes % 11.2 % (0.0-11.0) Eosinophils % 6.1 % (0.0-7.0) Basophils % 1.5 % (0.0-2.0) Nucleated Red Blood Cells % 0.0 /100WBC (0.0-0.0) Immature Granulocytes # 0.010 10^3/ul (0.0-0.031) Neutrophils # 2.3 10^3/ul (1.6-7.5) Lymphocytes # 2.1 10^3/ul (0.8-2.9) Monocytes # 0.6 10^3/ul (0.3-0.9) Eosinophils # 0.3 10^3/ul (0.0-0.5) Basophils # 0.1 10^3/ul (0.0-0.1) Nucleated Red Blood Cells # 0.0 10^3/ul (0.0-0.0) Sodium Level 143 mmol/L (135-144) Potassium Level 3.6 mmol/L (3.5-5.1) Chloride Level 108 mmol/L (97-110) Carbon Dioxide Level 28 mmol/L (21-31) Anion Gap 7 (5-13) Blood Urea Nitrogen 4 mg/dl (7-20) Creatinine 0.51 mg/dl (0.44-1.00) Est Glomerular Filtrat Rate mL/min > 60 mL/min (>60) Glucose Level 106 mg/dl (70-220) Calcium Level 8.4 mg/dl (8.4-10.2) Phosphorus Level 3.4 mg/dl (2.5-4.9) Magnesium Level 1.9 mg/dl (1.7-2.5) CARRIE MURPHY NP Sep 23, 2018 14:08
[2018-09-23 14:31] VITALS: BP 136/72; PULSE 70; RESP 18
== END 2018-09-23 15:50 | disposition home or self-care (01) | DRG 389 ==
LOC: E/R 18:13 → MS1 21:47
PROVIDERS: ADMIT Internal Medicine; ATTEND Internal Medicine
DX: K56.600 Partial intestinal obstruction, unspecified as to cause (principal); N39.0 Urinary tract infection, site not specified; K56.7 Ileus, unspecified; E03.9 Hypothyroidism, unspecified; D64.9 Anemia, unspecified; E86.0 Dehydration; Z90.49 Acquired absence of other specified parts of digestive tract
CPT/HCPCS: 36415; 74018; 74176; 74250; 80048; 80053; 81001; 83615; 83690; 83735; 84100; 84436; 84443; 84479; 84703; 85025; 85610; 85730; 96374; 96375; J0696; J1650; J2270; J2405; J7042